=== PATIENT | female | born 1950 | race Caucasian/White ===

== ENCOUNTER → 2018-05-10 14:36 | Outpatient (CLI) | payer MEDICARE, OTHER, SELFPAY ==
[2018-05-10 16:46] LABS: Thyroid Stimulating Hormone 0.72 uIU/mL (0.47-4.68)
== END ==
PROVIDERS: PCP Internal Medicine; Visit Provider Internal Medicine
DX: E03.9 Hypothyroidism, unspecified (principal)
CPT/HCPCS: 36415; 84443

== ENCOUNTER → 2018-06-25 07:30 | Outpatient (CLI) | payer MEDICARE, OTHER, SELFPAY ==
[2018-06-25 09:31] LABS: Add Manual Diff / Slide Review NO; Basophils Percent Auto 0.8 % (0-2); Eosinophils Percent Auto 5.5 % (2-4); Hematocrit 45.1 % (36-46); Hemoglobin 15.4 g/dL (12.0-16.0); Lymphocytes Percent Auto 24.6 % (25-40); Mean Corpuscular HGB Conc 34.2 % (30-36); Mean Corpuscular Hemoglobin 31.1 PG (26-34); Mean Corpuscular Volume 90.9 fL (80-100); Neutrophils Absolute Auto 3600 /uL (3000-5900); Neutrophils Percent Auto 60.1 % (50-75); Platelet Count 245 X10^3/uL (150-400); Red Blood Cell Count 4.96 X10^6/uL (4.0-5.2); Red Cell Distribution Width 13.3 % (11.6-14.8)
[2018-06-25 10:16] LABS: Alanine Aminotransferase 26 IU/L (9-52); Albumin 4.4 g/dL (3.5-5.0); Albumin Globulin Ratio 1.8 (1.0-2.8); Alkaline Phosphatase 55 U/L (38-126); Aspartate Aminotransferase 25 IU/L (14-36); Bilirubin Total 0.8 mg/dL (0.2-1.3); Blood Urea Nitrogen 20 mg/dL (7-17); Calcium 9.6 mg/dL (8.4-10.2); Carbon Dioxide 30 mmol/L (22-32); Chloride 102 mmol/L (98-107); Cholesterol 194 mg/dL (140-199); Estimated Glomerular Filt Rate > 60.0 mL/min (>60); Globulin 2.5 g/dL (1.7-4.1); Glucose 91 mg/dL (80-110); HDL Cholesterol 63 mg/dL (40-60); HEMOLYSIS < 15 (0-50); LDL Cholesterol Calculated 117 mg/dL (<100); Potassium 4.3 mmol/L (3.4-5.1); Sodium 142 mmol/L (137-145); Total Protein 6.9 g/dL (6.3-8.2); Triglycerides 68 mg/dL (35-150)
[2018-06-25 10:43] LABS: Thyroid Stimulating Hormone 1.19 uIU/mL (0.47-4.68)
--- NOTE | 2018-06-25 13:43 | DI.RAD.S_ITS ---
This blank DEXA report has been sent in error by the PACS system. The correct and complete report will be forthcoming in 1-2 days. Thank you for your patience and understanding. Dictated by: James Decker M.D. on 06/25/2018 at 15:05 Approved by: James Decker M.D. on 06/25/2018 at 15:16
== END ==
PROVIDERS: PCP Internal Medicine; Visit Provider Internal Medicine
DX: M85.851 Other specified disorders of bone density and structure, right thigh (principal); Z78.0 Asymptomatic menopausal state; E03.9 Hypothyroidism, unspecified; I10 Essential (primary) hypertension; Z85.3 Personal history of malignant neoplasm of breast
CPT/HCPCS: 36415; 77080; 80053; 80061; 84443; 85025

== ENCOUNTER → 2018-11-22 07:46 | Outpatient (CLI) | payer MEDICARE, OTHER, SELFPAY ==
--- NOTE | 2018-11-22 | DI.MRI.S_ITS ---
BREAST MRI OF BOTH BREASTS: 11/22/2018 CLINICAL: Personal history of breast cancer. Family history of breast cancer. PROCEDURE: MR BREAST BI WO/W CON INDICATIONS: PERSONAL HISTORY OF MALIGNANT NEOPLASM OF BREAST TECHNIQUE: The patient was placed prone in a dedicated breast imaging coil. Precontrast axial STIR and 3D FLASH without fat saturation sequences were obtained. Both before and after bolus injection of contrast, sequential 1-minute axial 3D FLASH with fat saturation sequences for 3 time points, with subtraction images and maximum intensity projections (MIP's) generated. Delayed sagittal FLASH images with fat saturation were also obtained. 20 cc of intravenous Prohance contrast was utilized for this exam. Computer-aided detection, including computer algorithm analysis of MRI image data for lesion detection and characterization, pharmacokinetic analysis, with further physician review for interpretation, was performed. COMPARISON: [facility], , UNILATERAL DXIC MAMMO, 01/31/2013, 11:13. [facility], US, BREAST(S) SONOGRAM, 01/24/2013, 8:50. [facility], CT, THORAX WITHOUT CONTRAST, 08/29/2011, 10:28. [facility], MR, BREAST BILATERAL W/CAD (PNL), 01/31/2013, 14:10. [facility], MR, BREAST BILATERAL W FINDINGS: Image quality: Excellent. No significant background parenchymal enhancement given bilateral postsurgical changes. Right breast: The right breast is surgically absent. There are postsurgical changes from right breast reconstruction including multiple surgical clips predominantly along the inferior right chest wall. There is a 2 mm focus of minimal contrast enhancement and T2 signal hyperintensity within the skin of the anterior reconstructed right breast near 5:00-6:00 position that is unchanged from comparison MRI of 01/31/2013, likely representing a cyst. There are no suspicious masses or non-mass enhancement within the reconstructed right breast. Left breast: The left breast is surgically absent. An intact pre-pectoral saline implant with prominent radial folds is identified. There are no suspicious masses or non-mass enhancement within the reconstructed left breast. Miscellaneous: No axillary or internal mammary lymphadenopathy identified. There is a possible small 5 mm focus of indistinct contrast-enhancement in the right middle lobe. IMPRESSION: 1. Right breast: Negative for malignancy. Postsurgical changes as described above. 2. Left breast: Negative for malignancy. Postsurgical changes as described above. 3. No axillary or internal mammary lymphadenopathy bilaterally. 4. Incidental note is made of a possible small 5 mm focus of indistinct contrast-enhancement in the right middle lobe. Consider followup CT of the chest for further evaluation if the patient has clinical risk factors for development of lung malignancy. BIRADS: Right breast: BI-RADS 2. Recommend clinical followup, with followup imaging as clinically appropriate given postsurgical status. Left breast: BI-RADS 2. Recommend clinical followup, with followup imaging as clinically appropriate given postsurgical status. COMMENT: The imaging literature indicates that a negative contrast breast MRI examination has a high sensitivity and a moderate specificity for detecting and excluding invasive carcinomas to a detection threshold of 3-5 mm; nonetheless, appropriate clinical and mammographic follow-up are recommended. MRI is not sensitive for detecting DCIS (ductal carcinoma in situ) and may not detect large invasive neoplasms that show only minimal enhancement such as mucinous carcinoma. If there are suspicious calcifications or clinically worrisome palpable masses, then biopsy should still be considered. Invasive neoplasms can be hidden by co-existent and benign enhancement caused by mastitis, hormone therapy effects, radiation therapy, , and recent biopsy or surgery. False positive examinations can occur in a number of circumstances, including breasts that have recently been subject to invasive procedures and those that contain atypical ductal hyperplasia, hormonally stimulated glandular tissue, fat necrosis, or radial scars. This exam was interpreted at Station ID: [id number]. Electronically Signed By: Shine Arndt M.D. ecl/:11/24/2018 11:44:38 Entry: - 11/24/2018 11:44:38 ACR BI-RADS Category 2: Benign Finding(s) [id number]
[2018-11-22 08:11] LABS: BUN Creatinine Ratio 24.3 (6-22); Blood Urea Nitrogen 17 mg/dL (7-17); Estimated Glomerular Filt Rate > 60.0 mL/min (>60)
== END ==
PROVIDERS: Family Medicine; PCP Internal Medicine; Visit Provider Internal Medicine
DX: Z01.812 Encounter for preprocedural laboratory examination (principal); Z85.3 Personal history of malignant neoplasm of breast; Z90.13 Acquired absence of bilateral breasts and nipples; Z98.82 Breast implant status; Z80.3 Family history of malignant neoplasm of breast
CPT/HCPCS: 36415; 77049; 82565; 84520; A9579

== ENCOUNTER → 2018-12-24 07:38 | Outpatient (CLI) | payer MEDICARE, OTHER, SELFPAY ==
--- NOTE | 2018-12-24 | DI.CT.S_ITS ---
PROCEDURE: CT CHEST WO CON INDICATIONS: RIGHT MIDDLE LOBE MASS TECHNIQUE: Noncontrast 5 mm thick sections acquired from the pulmonary apices to the posterior costophrenic angles. 7 mm thick coronal and sagittal MIP reformats were then acquired. For radiation dose reduction, the following was used: automated exposure control, adjustment of mA and/or kV according to patient size. COMPARISON: None. FINDINGS: Image quality: Excellent. Lungs and pleura: No acute air space opacities. There is a 0.7 x 1.0 cm nodule in the posterior-medial left upper lobe. There is a 4 mm nodule in the lateral segment of the right middle lobe. There is a 3 mm subpleural nodule in the right upper lobe No pleural effusions or pneumothorax. Central and peripheral airways are patent and normal in caliber. Mediastinum: Heart size is normal. No pericardial effusion. No mediastinal adenopathy by size criteria. Atherosclerotic calcifications noted in the aorta. Thoracic aorta and central pulmonary arteries are normal in size. Esophagus is normal in caliber. No hiatal hernia. Bones and chest wall: Left breast implant is noted. Multiple left axillary and right breast surgical clips are noted. No suspicious bony lesions. No vertebral body compression fractures. No axillary or supraclavicular adenopathy by size criteria. Thyroid gland is within normal limits. Abdomen: 0.9 cm hypoattenuating lesion of the left lobe of the liver which may represent a cyst or hemangioma, however lesion cannot be definitively characterized with the benefit of intravenous contrast. Visualized upper abdominal solid organs and bowel loops appear normal in the absence of contrast. IMPRESSION: 1. 0.7 x 1.0 cm left upper lobe nodule. Recommend PET/CT scan for further evaluation based on criteria outlined below. 2. 4 mm and 3 mm right lung nodules. Recommend optional followup CT imaging in 6-12 months. 3. Indeterminate 9 mm hepatic hypoattenuating lesion. Fleischner Society criteria for SOLID lung nodule followup. Nodule size (mm)Low-risk patientHigh-risk patient<6 (single or multiple)No routine followup.Optional CT at 12 months. 6-8 (single or multiple)CT at 6-12 months, then optional CT at 18-24 mo.CT at 6-12 months, then CT at 18-24 months. >8 (single)CT at 3 months, PET-CT, or biopsy. Same as for low-risk pts. >8 (multiple)CT at 3-6 months, then optional CT at 18-24 mo.CT at 3-6 months, then CT at 18-24 months. Recommendations do not apply to lung cancer screening, patients with immunosuppression, or patients with known primary cancer. Dictated by: Kailey Romano MD, PhD on 12/24/2018 at 9:34 Approved by: Kailey Romano MD, PhD on 12/24/2018 at 9:47
== END ==
PROVIDERS: PCP Internal Medicine; Visit Provider Internal Medicine
DX: R91.8 Other nonspecific abnormal finding of lung field (principal); K76.9 Liver disease, unspecified
CPT/HCPCS: 71250

== ENCOUNTER → 2019-01-21 09:42 | Outpatient (CLI) | payer MEDICARE, OTHER, SELFPAY ==
--- NOTE | 2019-01-21 | DI.US.S_ITS ---
PROCEDURE: US THYROID INDICATIONS: Disorder of thyroid, unspecified TECHNIQUE: Real-time scanning was performed of the thyroid gland, with image documentation. COMPARISON: [facility], US, THYROID, 08/07/2014, 8:24. FINDINGS: Right: Thyroid lobe measures 3.9 x 1.2 x 1.1 cm, and is diffusely heterogeneous in echotexture. Left: Thyroid lobe measures 3.5 x 1.1 x 1.0 cm, and is diffusely heterogeneous in echotexture. Isthmus: 3.0 mm thick. IMPRESSION: Diffusely heterogeneous thyroid which may be related to thyroiditis and clinical correlation recommended. Dictated by: Stefan DAVID Interpreted: James Decker MD on 01/21/2019 at 15:31 Approved by: James Decker M.D. on 01/21/2019 at 17:39
== END ==
PROVIDERS: PCP Internal Medicine; Visit Provider Internal Medicine
DX: E07.9 Disorder of thyroid, unspecified (principal)
CPT/HCPCS: 76536

== ENCOUNTER → 2019-10-21 07:49 | Outpatient (CLI) | payer MEDICARE, OTHER, SELFPAY ==
--- NOTE | 2019-10-21 | DI.US.S_ITS ---
PROCEDURE: US ABDOMEN COMPLETE INDICATIONS: LEFT UPPER QUADRANT PAIN TECHNIQUE: Real-time scanning was performed of the abdominal and retroperitoneal organs, with image documentation. COMPARISON: [facility], [place], [place] PET CT FUSION SKULL 2 THIGH, 01/05/2019, 13:59. FINDINGS: Liver: Liver is normal in size and homogeneous in echotexture. There are 2 hepatic cysts, largest measuring 9 mm. Gallbladder: Two small polyps; the largest measuring 3 mm; otherwise normal gallbladder. Biliary ducts: Intrahepatic bile ducts are non-dilated. Extrahepatic bile duct caliber measures 5.0 mm. Normal is 6-7 mm or less in diameter, or 10 mm or less post-cholecystectomy. Pancreas: Visualized portions of the pancreas are sonographically normal. Spleen: Spleen is normal in size and homogeneous in echotexture. Kidneys: Kidneys are normal in size and echotexture. Right kidney measures 10.0 cm long; left kidney measures 9.9 cm long. No hydronephrosis or nephrolithiasis. No solid masses. Aorta: Visualized aorta is normal in caliber at less than 3 cm. Iliacs: Proximal common iliac arteries are normal in caliber at less than 2.5 cm. IVC: Intrahepatic inferior vena cava is patent. Miscellaneous: No free abdominal fluid. The left lower quadrant abnormalities. IMPRESSION: 1. 2 hepatic cysts. 2. Two small gallbladder polyps measuring up to 3 mm. No followup is suggested given their small size. 3. No left lower quadrant abnormality seen. If indicated, CT could be performed. Dictated by: Stefan DAVID Interpreted: Perez Estes MD on 10/21/2019 at 16:51 Approved by: Perez Estes M.D. on 10/21/2019 at 18:00
== END ==
PROVIDERS: PCP Internal Medicine; Visit Provider Internal Medicine
DX: R10.12 Left upper quadrant pain (principal); K76.89 Other specified diseases of liver; K82.4 Cholesterolosis of gallbladder
CPT/HCPCS: 76700

== ENCOUNTER → 2020-03-20 10:28 | Outpatient (CLI) | payer MEDICARE, OTHER, SELFPAY ==
--- NOTE | 2020-03-20 | DI.CT.S_ITS ---
PROCEDURE: CT ABDOMEN PELVIS W CON INDICATIONS: Right upper quadrant pain TECHNIQUE: After the administration of oral and intravenous contrast, 5 mm thick sections acquired from the diaphragms to the symphysis. 5 mm thick coronal and sagittal reformats were performed. For radiation dose reduction, the following was used: automated exposure control, adjustment of mA and/or kV according to patient size. COMPARISON: [facility], US, US ABDOMEN COMPLETE, 10/21/2019, 15:08. [facility], CT, CT CHEST WO CON, 12/24/2018, 7:43. [facility], CT, ABDOMEN/PELVIS WITH CONTRAST, 03/07/2011, 12:17. FINDINGS: Image quality: Excellent. ABDOMEN: Lung bases: Lung bases are clear. Heart size is mildly enlarged, stable. Intact left breast implant present. Surgical changes along the inferior aspect of the right breast. There 2 small hypodensities in the left lobe liver which are stable compared to the prior study. Solid organs: Liver is normal in size and enhancement. Gallbladder is unremarkable. Biliary system is non-dilated. Pancreas enhances normally. Spleen is normal in size and enhancement. No adrenal nodules. Kidneys are normal in size and enhancement, without hydronephrosis. Peritoneum and bowel: There has been interval development of small ascites throughout the abdomen and irregular nodular thickening of the omentum. Scattered surgical clips are present along the anterior abdominal wall. The proximal stomach is normal without hiatal hernia. There is diffuse circumferential wall thickening and edema around the gastric antrum/pylorus. No extraluminal gas. Small bowel loops are normal caliber. Mid to distal colon is fairly decompressed. Nodes and vessels: No retroperitoneal or mesenteric adenopathy. Aorta and inferior vena cava are normal in caliber. Miscellaneous: No ventral hernias. PELVIS: Genitourinary: Bladder wall thickness is normal. Engorgement of periuterine and ovarian veins. No suspicious adnexal masses. Miscellaneous: No inguinal hernias or adenopathy. Bones: No suspicious bony lesions. Degenerative disc and endplate changes at the L5-S1 level. No vertebral body compression fractures. IMPRESSION: 1. Interval development of intraperitoneal ascites and irregular omental thickening/caking suspicious for metastatic disease/peritoneal carcinomatosis given history of breast cancer. 2. Circumferential wall thickening of the gastric antrum/pyloric channel. Consider gastritis/peptic ulcer disease. 3. Discussed with Mary Ellen Alejandra at 1445 hrs. Dictated by: Jana Merrill M.D. on 03/20/2020 at 14:30 Approved by: Jana Merrill M.D. on 03/20/2020 at 14:48
== END ==
PROVIDERS: PCP Internal Medicine; Referring Provider Internal Medicine; Visit Provider Internal Medicine
DX: R10.11 Right upper quadrant pain (principal); I51.7 Cardiomegaly; R18.8 Other ascites; Z85.3 Personal history of malignant neoplasm of breast
CPT/HCPCS: 74177; Q9967

== ENCOUNTER 2020-04-03 11:40 | Day surgery (SDC) | payer MEDICARE, OTHER, SELFPAY ==
[2020-04-03] VITALS (10 sets, daily range): BP systolic 88–140; BP diastolic 51–77; PULSE 58–80; RESP 11–16; TEMP 36.3–36.9; O2SAT 94–99; BMI 18.6
--- NOTE | 2020-04-03 | PATH_ITS ---
[facility] Accession Number: [id number] . 01 Material submitted: . PART A: body - OMENTUM (FROZEN SECTION) PART B: body - OMENTUM (PERMANENT) . 01 Clinical history: . FROZEN SECTION INFORMATION: DX: NEOPLASM PRESENT THROUGHOUT. SUFFICIENT MATERAIL OBTAIN FOR DIAGNOSIS. . GROSS DESCRIPTION: 2 X 1.4 X 0.5CM RED TISSUE, SERIALLY SECTIONED. ENVIRONMENTAL QUALITY ANALYST SECTION FROZEN -A1, REMAINING INTO A2 . 02 Frozen section diagnosis: . FSA: NEOPLASM PRESENT THROUGHOUT. SUFFICIENT MATERIAL OBTAINED FOR DIAGNOSIS. . Results given to Dr. Damian Kenyon after patient identification by Dr. Damian Bourgeois 04/03/2020. Frozen section was performed at [facility], [address] [place] [address]. AUTUMN/EMY . 03 Diagnosis: A.-B. 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 Please see comment. . . [facility] 04/06/2020 1542 Local . 03 Comment: As part of routine quality auditor, Dr. Cole also reviewed this case and agrees with the diagnosis. . 03 Electronically signed: . Ruba Bourgeois MD, Pathologist NPI- [id number] . 01 Gross description: . (A) Received in formalin, labeled omentum, is a piece of 2.0 x 1.4 x 0.5 cm red tissue previously received unfixed for frozen section performed at [facility]. Electrical Estimator sections were frozen and the remaining of the frozen section tissue is submitted in cassette A1, and all remaining tissue is entirely submitted in cassette A2. (B) Received in formalin, labeled omentum (permanent), is a piece of ashton-yellow rubbery adipose tissue (1.3 x 0.7 x 0.3 cm). The tissue is inked blue, serially sectioned, and entirely submitted in cassette B1. ([id number]) /MRV 04/04/2020 1244 Local . 03 Microscopic: . A. Immunohistochemical stains were performed to characterize the cells of interest. All control stains showed appropriate reactivity. . RESULTS: Estrogen receptor: Positive. WT1: Positive. PAX-8: Positive. CK7: Positive. CK20: Negative. GATA3: Negative. GCDFP-15: Negative. CDX2: Negative. Villin: Negative. p16: Positive. BEREP4: Positive. MOC-31: Positive. Calretinin: Negative. D2-40: Negative [place]: Weakly variably positive. . INTERPRETATION: Organ-specific markers for breast (GATA3, GCDFP-15) and GI (CDX2, VILLIN) origin are negative. The expression of BEREP4 and MOC-31 with absence of Calretinin and D240 mitigates against an interpretation of a primary peritoneal carcinoma. The strong ER and WT1 expression is most compatible with an ovarian site of origin, in the appropriate clinical and radiologic setting. . * This test was developed and its performance characteristics determined by [facility]. It has not been cleared or approved by the U.S. Food and Drug Administration. The FDA has determined that such clearance or approval is not necessary. This test is used for clinical purposes. It should not be regarded as investigational or for research. . . 03 Pathologist provided ICD-10: C78.6 . 03 CPT . 182161, 311501, 471667, U64508, J22162 Performed at: [facility] [address] [facility], [place], [place] [id number] MD Ziggy Byers MD Phone: [phone] Performed at: [address] [id number] MD Lisa Eugene MD Phone: [phone] Performed at: [address] [place], [place] [id number] MD Ruba Bourgeois MD Phone: [phone]
--- NOTE | 2020-04-03 14:04 | PM.PREOP ---
Pre-operative Note COVID-19 COVID-19 status: Negative Result date/Date tested (Pos, Neg/Pending): 03/31/20 Interval Note History & Physical reviewed/Exam performed by Physician: Yes Changes to H&P: No
[2020-04-03] MEDS: LACTATED RINGERS 1,000 ML 42 ML IV ×2 (14:06→17:06)
[2020-04-03] MEDS: CEFAZOLIN 2 GM/100 ML FROZ.PIGGY IV (15:11)
--- NOTE | 2020-04-03 15:24 | SUR.OPER ---
Supine on padded OR bed, head on pillow, arms padded and tucked at sides, legs uncrossed, safety belt at thigh, tape over blanket over lower legs .
[2020-04-03] MEDS: ACETAMINOPHEN IV 1,000 MG/100 ML VIAL 400 MG IV (15:30)
[2020-04-03] MEDS: BUPIVACAINE 0.5% (PF) VIAL 30 ML INJ (15:41)
[2020-04-03] MEDS: HYDROMORPHONE 2 MG INJ IV (17:08)
--- NOTE | 2020-04-03 17:09 | PM.OP.1 ---
Operative Date/Time/Diagnoses Date of procedure: 04/03/20 Time of procedure: 17:01 Pre-op diagnosis: Probable carcinomatosis abdominal cavity. Abnormal CT involving the distal stomach and 1st part of the duodenum. Post-op diagnosis: same Procedure & Clinicians Procedure: Laparoscopy with omentum biopsy. EGD. Same procedure as scheduled: Yes Indications: Diagnostic Surgeon: Mervin Kenyon Click Yes if Unassisted: Yes Anesthesia Type: General Operative Notes Findings: Omentum adherent to the abdominal wall from the umbilicus down. I could not see into the pelvis without dissecting further than I did. The omentum appeared to be adherent because of fine nodules and sheets of lesions on the peritoneum. The upper abdomen was fairly free of any adhesions. There were small nodules on the surface of the liver that may not be metastatic. I did not biopsy these. There was some fine nodularity in the upper abdomen on the peritoneum. Minimal amount of fluid within the abdomen. Closure Type: primary Specimen(s): other (Omental biopsies) Estimated Blood Loss (mL): 10 Blood products transfused: none Procedure in detail: The patient is placed supine on the operating room table and underwent general endotracheal anesthesia. She was prepped and draped in the usual fashion. She has had a prior rectus flap from her left rectus muscle and an abdominoplasty. She was uncertain if mesh was used to repair the rectus flap area and therefore I chose to make an incision in the right abdomen transversely above the level of the umbilicus. This was carried down through the anterior and posterior rectus fascia into the peritoneal cavity. Stay sutures of 0 Vicryl were placed in the fascia. A 12 mm port was inserted and examination the abdomen was undertaken. I found a clear area in the left lower abdomen. The upper abdomen was fairly clear of adhesions but also there was very little or no evidence of tumor. I placed 2 additional ports in her scar in the left lower quadrant at about the level the umbilicus. IE then dissected omentum with blunt dissection off the anterior abdominal wall from the umbilicus down toward the pelvis. I selected an area that appeared to have tumor nodules and very carefully biopsied these using cautery to stop any bleeding from the omentum. This was a somewhat tedious process because I could not easily tell without very slow dissection whether intestine was in the region or not due to the sheet of omentum that I encountered. I was able to submit for frozen section a piece of omentum that did contain tumor. The pathologist felt that this would be adequate for diagnosis but if I could send any additional easily it might be helpful. I sent 1 other tumor nodule and then irrigated the abdomen suctioned free of fluid ensured hemostasis and removed the air and ports. The stay sutures in the 2 layers of fascia were tied closing the fascia. The wounds were irrigated and 4 0 Vicryl subcuticular stitches were used to close the skin. Steri-Strips with Mastisol under them or applied along with Band-Aids and the patient was awakened extubated and taken recovery room good condition Complications: none Post-operative Condition: stable Disposition: PACU Plan for aftercare: Follow-up in our office in about a week to 10 days. Follow-up with oncology sometime late next week early the following week.
--- NOTE | 2020-04-03 17:21 | SUR.PHASEI ---
Very drowsy, taking ice chips; denied nausea. Report off to Hima Sanchez RN. Bandaids remain CDI. Exp sighing, lungs clear in inspiration.
--- NOTE | 2020-04-03 17:25 | SUR.PHASEI ---
Assumed care. Patient reported pain 3/10.
[2020-04-03] MEDS: ONDANSETRON 4 MG/2 ML INJ IV (17:38)
--- NOTE | 2020-04-03 18:10 | SUR.PHASEII ---
Pain 11/11. C/o intermittent nausea, Dr. Perez notified. Reglan ordered.
[2020-04-03] MEDS: METOCLOPRAMIDE 10 MG/2 ML INJ IV (18:17)
[2020-04-03] MEDS: PROCHLORPERAZINE 10 MG/2 ML VIAL 5 MG IV (18:58)
--- NOTE | 2020-04-03 19:25 | SUR.PHASEII ---
Patient reported nausea improving. Discharge instructions reviewed over the phone with patient's spouse.
--- NOTE | 2020-04-03 20:14 | SUR.PHASEII ---
Patient reported nausea improved. Dressed with minimal assistance. Able to ambulate to the bathroom, sba.
== END 2020-04-03 20:04 | disposition home or self-care (01) ==
PROVIDERS: PCP Internal Medicine; Referring Provider Specialist; Visit Provider Specialist
PROC: (CPT 49320; principal; 2020-04-03 12:45)
PROC: 0DJ08ZZ Inspection of Upper Intestinal Tract, Via Natural or Artificial Opening Endoscopic (ICD-10-PCS; CPT 43235; 2020-04-03 12:45)
DX: C78.6 Secondary malignant neoplasm of retroperitoneum and peritoneum (principal); K21.9 Gastro-esophageal reflux disease without esophagitis; R11.0 Nausea; R18.8 Other ascites; E03.9 Hypothyroidism, unspecified; M85.80 Other specified disorders of bone density and structure, unspecified site; Z85.3 Personal history of malignant neoplasm of breast; I10 Essential (primary) hypertension
CPT/HCPCS: 49321; 43235; J0131; J0360; J0690; J0780; J1100; J1170; J2250; J2405; J2704; J2765; J3010